=== PATIENT | female | born 1955 | race Two or more races ===

== ENCOUNTER 2023-07-20 06:42 | Day surgery (SDC) | payer OTHER ==
[~2023-07-20] VITALS: Ht 160 cm; Wt 62.6 kg
[~2023-07-20 06:42] MED LIST: LIPITOR20 MG PO; PROAIR RESPICL90 MCG IH; SYMBICORT 16010.2 GM IH
== END 2023-07-20 15:05 | disposition home or self-care (01) ==
LOC: CIR.AMB 06:42
PROVIDERS: ATTEND Student in an Organized Health Care Education/Training Program
DX: D25.0 Submucous leiomyoma of uterus (principal); N84.0 Polyp of corpus uteri; I10 Essential (primary) hypertension